=== PATIENT | male | born 1945 | race Caucasian/White ===

== ENCOUNTER → 2016-04-23 | Day surgery (SDC) | payer MEDICARE | END | disposition home or self-care (01) | LOC: FAS 13:10 | DX: D12.5 Benign neoplasm of sigmoid colon (principal); D50.0 Iron deficiency anemia secondary to blood loss (chronic); K64.8 Other hemorrhoids; K52.9 Noninfective gastroenteritis and colitis, unspecified; K57.30 Diverticulosis of large intestine without perforation or abscess without bleeding; K21.9 Gastro-esophageal reflux disease without esophagitis; E03.9 Hypothyroidism, unspecified; I10 Essential (primary) hypertension; M19.90 Unspecified osteoarthritis, unspecified site; Z79.82 Long term (current) use of aspirin; Z79.899 Other long term (current) drug therapy; Z90.49 Acquired absence of other specified parts of digestive tract; Z98.890 Other specified postprocedural states; Z86.010 Personal history of colon polyps | CPT/HCPCS: 88305; J2704 ==